=== PATIENT | male | born 1990 | race African-American/Black ===

== ENCOUNTER 2016-11-18 19:57 | Emergency (ER) | payer BC ==
[~2016-11-18] VITALS: Ht 182.9 cm; Wt 78.0 kg
[2016-11-18 20:26] VITALS: Ht 182.9 cm; Wt 78.0 kg
[2016-11-18] MEDS ORDERED: IBUP800T25 PO (20:43)
--- NOTE | 2016-11-18 20:47 | ERD ---
ER Documentation Chief Complaint Date/Time DATE: 11/18/16 TIME: 20:45 Chief Complaint Right arm pain x3 hours HPI 26-year-old male complaining of right shoulder pain since this afternoon. 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 The box slipped, he was trying to grab the box when he dislocated his right shoulder. He was able to reduce the dislocation by himself. However, he is reporting increasing pain since then. Patient has history of frequent right shoulder dislocation in the past. Usually, he does not have the pain after he reduced the dislocation. Denies any other injuries. ROS All systems reviewed and are negative except as per history of present illness. Medications Home Meds Active Scripts Ibuprofen* (Motrin*) 800 Mg Tab, 800 MG PO Q8, #30 TAB Prov:NAV VÁSQUEZ. 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 TENDER 11/18/16 Allergies Allergies: Coded Allergies: No Known Allergy (Unverified , 11/18/16) PMhx/Soc Medical and Surgical Hx: pt denies Medical Hx, pt denies Surgical Hx History of Surgery: No Anesthesia Reaction: No Hx Neurological Disorder: No Hx Respiratory Disorders: No Hx Cardiac Disorders: No Hx Psychiatric Problems: No Hx Miscellaneous Medical Probl: Yes (shoulder dislocations) Hx Alcohol Use: Yes Hx Substance Use: Yes Hx Tobacco Use: No Smoking Status: Never smoker Physical Exam Vitals Vital Signs Date Time Temp Pulse Resp B/P Pulse Ox O2 Delivery O2 Flow Rate FiO2 11/18/16 20:26 100.5 97 20 117/70 98 Physical Exam General: Well-developed, well-nourished, conscious and coherent, in no distress Skin: Warm and dry without rash, good texture and turgor Head: Normocephalic without evidence of trauma Eyes: Sclera and conjunctivae normal; pupils equal, round, and reactive to light; extraocular movements are intact Neck: Supple without meningismus or adenopathy. Carotids are equal. Trachea midline. No bruits or JVD Chest: Normal AP diameter. Good expansion without retractions. Nontender. Lungs are clear to auscultate bilaterally with good tidal volume Heart: Regular rate and rhythm. No murmur, rub, or gallops heard Extremities: Right shoulder normal to inspection, no step-offs, nontender. Slightly reduced range of motion of the right shoulder due to pain. Good strength bilaterally. No clubbing, cyanosis, or edema. Peripheral pulses are intact. Sensation intact Neuro: Alert and oriented 4, GCS 15. Cranial nerves grossly intact. Motor and sensory exams nonfocal. Moves all extremities. Speech clear. Gait normal Results 24 hrs Current Medications Medications (Trade) Dose Ordered Sig/Usama Route PRN Reason Start Time Stop Time Status Last Admin Dose Admin Ibuprofen (Motrin) 800 mg ONCE ONCE PO 11/18/16 21:00 11/18/16 21:01 DC 11/18/16 20:45 PROCEDURE: XR right Shoulder. CLINICAL INDICATION: Shoulder dislocation post reduction TECHNIQUE: Two views of the right shoulder are available for review. COMPARISON: None available FINDINGS: There is no acute fracture or dislocation. The glenohumeral and acromioclavicular joints are intact. A small Hill-Sachs deformity of the humeral head is present. The soft tissues around the right shoulder are unremarkable. There is no acute fracture of the visualized right ribs. The visualized right lung is clear. RPTAT: ZZ IMPRESSION: 1. The glenohumeral joint is intact without a displaced fracture. 2. Small Hill-Sachs deformity of the humeral head. .Sandra Moran MD, MD Date Time Electronically viewed and signed by .Sandra Moran MD, MD on 11/18/2016 22: 14 .T/ CC: NAV VÁSQUEZ 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 TENDER Procedures/MDM 26-year-old male with history of frequent right shoulder dislocation present in the ED today with pain after right shoulder dislocation and self reduction. Patient currently does not have any deformities of the right shoulder. X-ray showed good positioning of the right shoulder joint without fractures or dislocation. Patient does not have any neurovascular deficit, I doubt nerve or vascular impingement. The area of injury was immobilized with a sling. Patient was noted to be comfortable and neurovascularly intact both before and after the immobilization. Patient given ibuprofen in the ED for pain. Patient reports improvement pain after ibuprofen. Patient appears well, stable for discharge and outpatient management. Medical decision making shared with patient and family. Education provided to patient and family. Patient and family expressed understanding of the plan. Medications on discharge: Ibuprofen. Follow-up: Primary care provider in 2-3 days or return to ED if worse. Departure Diagnosis: Primary Impression: Recurrent dislocation, right shoulder Condition: Good Patient Instructions: Understanding Rotator Cuff Injuries, Dislocation: Shoulder (Reduced) Referrals: [facility] YOU HAVE RECEIVED A MEDICAL SCREENING EXAM AND THE RESULTS INDICATE THAT YOU DO NOT HAVE A CONDITION THAT REQUIRES URGENT TREATMENT IN THE EMERGENCY DEPARTMENT. FURTHER EVALUATION AND TREATMENT OF YOUR CONDITION CAN WAIT UNTIL YOU ARE SEEN IN YOUR DOCTORS OFFICE WITHIN THE NEXT 1-2 DAYS. IT IS YOUR RESPONSIBILITY TO MAKE AN APPOINTMENT FOR FOLOW-UP CARE. IF YOU HAVE A PRIMARY DOCTOR --you should call your primary doctor and schedule an appointment IF YOU DO NOT HAVE A PRIMARY DOCTOR YOU CAN CALL OUR PHYSICIAN REFERRAL HOTLINE AT IF YOU CAN NOT AFFORD TO SEE A PHYSICIAN YOU CAN CHOSE FROM THE FOLLOWING [facility] [address] [facility] [address] [facility] [facility] [address] [facility] [address] [facility]. [facility] [address] [facility]. [address] Additional Instructions: Call your primary care doctor TOMORROW for an appointment during the next 1 WEEK.Tell the paralegal secretary that you were referred from this facility.See the doctor sooner or return here if your condition worsens before your appointment time. NAV VÁSQUEZ NP Nov 18, 2016 20:47
[2016-11-18] MEDS ORDERED: IBUPROFEN 800 MG TAB PO ONE (21:00)
--- NOTE | 2016-11-18 22:14 | RADRPT ---
PROCEDURE: XR right Shoulder. CLINICAL INDICATION: Shoulder dislocation post reduction TECHNIQUE: Two views of the right shoulder are available for review. COMPARISON: None available FINDINGS: There is no acute fracture or dislocation. The glenohumeral and acromioclavicular joints are intact . A small Hill-Sachs deformity of the humeral head is present. The soft tissues around the right sh oulder are unremarkable. There is no acute fracture of the visualized right ribs. The visualized right lung is clear. RPTAT: ZZ IMPRESSION: 1. The glenohumeral joint is intact without a displaced fracture. 2. Small Hill-Sachs deformity of the humeral head. .Sandra Moran MD, MD Date Time Electronically viewed and signed by .Sandra Moran MD, on 11/18/2016 22:14 .T/
== END 2016-11-18 23:00 | disposition home or self-care (01) ==
LOC: FTE 19:57
DX: M24.411 Recurrent dislocation, right shoulder (principal); X50.0XXA Overexertion from strenuous movement or load, initial encounter; Y92.512 Supermarket, store or market as the place of occurrence of the external cause
CPT/HCPCS: 73030; Z7502; Z7610